=== PATIENT | male | born 1970 | race Caucasian/White ===

== ENCOUNTER 2017-10-25 18:41 | Emergency (ER) | payer OTHER ==
--- NOTE | 2017-10-25 20:29 | EDM.PDOC ---
ED HPI GENERAL MEDICAL PROBLEM - General Chief Complaint: Upper Extremity Injury/Pain Stated Complaint: LEFT ELBOW SWELLING,REDNESS Time Seen by Provider: 10/25/17 20:15 Source of Information: Reports: Patient History Limitations: Reports: No Limitations - History of Present Illness INITIAL COMMENTS - FREE TEXT/NARRATIVE: 47-year-old male developed redness and pain of his left elbow over the past 12 hours. He has a history of significant olecranon bursitis on the right side that needed antibiotics 10 years ago and is concerned he is developing the same thing. No trauma no fever. No other symptoms. 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 10-12 years ago Social & Family History - Family History Family Medical History: Noncontributory - Tobacco Use Smoking Status *Q: Never Smoker Second Hand Smoke Exposure: No - Caffeine Use Caffeine Use: Reports: Soda - Alcohol Use Days Per Week of Alcohol Use: 1 Number of Drinks Per Day: 1 Total Drinks Per Week: 1 Date of Last Drink: 10/25/17 Time of Last Drink: 18:00 - Recreational Drug Use Recreational Drug Use: No Review of Systems - Review of Systems Review Of Systems: See Below Constitutional: Denies: Fever Respiratory: Denies: Shortness of Breath Musculoskeletal: Reports: No Symptoms Skin: Reports: Erythema (Over the left elbow, olecranon area) Neurological: Reports: No Symptoms ED EXAM, GENERAL - Physical Exam Exam: See Below Exam Limited By: No Limitations General Appearance: Alert, No Apparent Distress Respiratory/Chest: No Respiratory Distress Extremities: Other (Exam is otherwise limited to the left arm. The patient does have edema and redness with slight warmth over the olecranon area of the elbow. It is tender to palpation. There is no wound, scratch or bite broussard seen.) Course - Vital Signs Last Recorded V/S: Last Vital Signs Temp 97.8 F 10/25/17 19:57 Pulse 84 10/25/17 19:57 Resp 14 10/25/17 19:57 BP 124/70 10/25/17 19:57 Pulse Ox 98 10/25/17 19:57 - Re-Assessments/Exams Free Text/Narrative Re-Assessment/Exam: 10/25/17 20:27 Patient has a remote history of allergy to penicillin, so will be placed on clindamycin 300 mg 3 times a day for the next 10 days, encouraged to apply warm compresses for the next few days and some gentle pressure and recheck in 2-3 days if not improving satisfactorily. Departure - Departure Time of Disposition: 20:37 Disposition: Home, Self-Care 01 Condition: Good Clinical Impression: Olecranon bursitis of left elbow - Discharge Information Instructions: Elbow Bursitis, [id number] Referrals: PCP,None [Primary Care Provider] - Forms: ED Department Discharge Care Plan Goals: Take antibiotic 3 times a day as directed. 2 doses tonight by 3 hours , then morning afternoon and night doses. Activity as tolerated, but gentle pressure on the elbow such as an Jose David wrap may help with swelling. Recheck in 2- 3 days if not improving satisfactorily.
== END 2017-10-25 20:40 | disposition home or self-care (01) ==
LOC: JP.ED 18:41
DX: M70.22 Olecranon bursitis, left elbow (principal); E78.00 Pure hypercholesterolemia, unspecified; Z88.0 Allergy status to penicillin; Z79.899 Other long term (current) drug therapy
CPT/HCPCS: 99283

== ENCOUNTER 2024-09-26 22:23 | Emergency (ER) | payer OTHER ==
[2024-09-26] MEDS: Lidocaine 1% 5 ML VIAL INJECT ONE (23:22)
[2024-09-26] MEDS: Bacitracin Oint 1 GM U/D Packet TOP ONE (23:38)
== END 2024-09-26 23:54 | disposition home or self-care (01) ==
LOC: JP.ED 22:23
DX: S60.452A Superficial foreign body of right middle finger, initial encounter (principal); E78.00 Pure hypercholesterolemia, unspecified; Z88.0 Allergy status to penicillin; Z79.899 Other long term (current) drug therapy; W45.8XXA Other foreign body or object entering through skin, initial encounter
CPT/HCPCS: 73140; 99283; J2003; 99282